=== PATIENT | male | born 1965 | race Caucasian/White ===

== ENCOUNTER 2019-04-05 10:34 | Inpatient (IN) | payer OTHER ==
[2019-04-05 11:56] VITALS: BMI 25.0
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
[2019-04-05] MEDS ORDERED: P-EPHED 60MG/TRIPROLIDI 2.5MG TABLET PO PRN (14:53)
[2019-04-05] MEDS ORDERED: MENTHOL/PHENOL 1 EACH UD MM PRN (14:53)
[2019-04-05] MEDS ORDERED: MAGNESIUM HYDROX 2400MG/30ML ORAL SUSPENSION 30 ML CUP PO PRN (14:53)
[2019-04-05] MEDS ORDERED: guaiFENesin 200 MG/10 ML 10 ML UNIT-DOSE CUPS PO PRN (14:53)
[2019-04-05] MEDS ORDERED: ACETAMINOPHEN 325 MG TABLET (FP) PO PRN (14:53)
[2019-04-05] MEDS ORDERED: IBUPROFEN 400 MG TABLET (FP) PO PRN (14:53)
[2019-04-05] MEDS ORDERED: MAG HYDROX/AL HYDROX/SIMETH 30 ML UNIT-DOSE CUP PO PRN (14:53)
[2019-04-05] MEDS ORDERED: MAGNESIUM CITRATE 300 ML BOTTLE PO PRN (14:53)
[2019-04-05] MEDS ORDERED: LOPERAMIDE HCL 2 MG CAPSULE PO PRN (14:53)
[2019-04-05] MEDS ORDERED: ALBUTEROL SO4 8 GM HFA INHALER IH PRN (14:55)
[2019-04-05] MEDS ORDERED: TUBERCULIN PPD 5 TU/0.1ML VIAL ID ONE (16:19)
[2019-04-05 17:09] LABS: HEMATOCRIT 42.2 % (35.4-49); HEMOGLOBIN 13.6 GM/dL (11.7-16.9); MCH 27.5 pg (25.7-33.7); MCHC 32.3 g/dl (32.0-35.9); MEAN CELL VOLUME 85.3 fl (80-96); MEAN PLT VOLUME 9.4 fl (7.5-11.1); PLATELET COUNT 216 K/MM3 (134-434); RBC 4.95 M/mm3 (4.00-5.60); WHITE BLOOD COUNT 7.6 K/mm3 (4.0-10.0)
--- NOTE | 2019-04-05 17:11 | PN ---
[facility] Progress Note Note: AT TIME OF ADMISSION, PATIENT REPROTED THAT HE CURRENTLY IS PRESCRIBED GENVOYA FOR TREATMENT OF HIV. HOWEVER, PATIENT REPORTS THAT HE RAN OUT OF MEDICATION AND THAT HE HAS NOT TAKEN IT FOR APPROX. THE LAST 2 WEEKS. GENVOYA NOT TO BE ORDERED FOR PATIENT DURING THIS DETOX ADMISSION. PATIENT ADVISED TO FOLLOW-UP WITH MEDICAL PROVIDER DR. Juliana BOLDEN WHEN POSSIBLE AFTER DISCHARGE FROM REHAB UNIT FOR FURTHER MEDICAL EVALUATION AND FOR SUBSEQUENT TREATMENT. PATIENT VERBALIZED UNDERSTANDING OF RECOMMENDATION. Juliana BUSCH NP
[2019-04-05 17:18] LABS: BILIRUBIN,TOTAL 0.2 mg/dL (0.2-1); CALCIUM 9.9 mg/dL (8.5-10.1); CREATININE 1.2 mg/dL (0.55-1.3); POTASSIUM 4.3 mmol/L (3.5-5.1)
[2019-04-05] MEDS: MELATONIN 5 MG TABLETS PO PRN (21:20)
[2019-04-05] MEDS: THIAMINE HCL 100 MG TABLET (FP) PO SCH (21:20)
[2019-04-06] MEDS: PRENATAL VITAMINS W/ FOLIC ACID TABLET (FP) PO SCH (10:08)
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
[2019-04-06 11:10] LABS: PH,URINE 6.5 (5.0-8.0); URINE APPEARANCE CLEAR; URINE BILIRUBIN NEGATIVE (NEGATIVE); URINE COLOR YELLOW; URINE GLUCOSE (UA) NEGATIVE (NEGATIVE); URINE KETONE NEGATIVE (NEGATIVE); URINE LEUK ESTERASE NEGATIVE (NEGATIVE); URINE NITRITE NEGATIVE (NEGATIVE); URINE PROTEIN NEGATIVE (NEGATIVE); URINE UROBILINOGEN 0.2 mg/dL (0.2-1.0)
[2019-04-06] MEDS: MIRTAZAPINE 15 MG TABLET (FP) PO SCH (21:17)
[2019-04-06] MEDS: THIAMINE HCL 100 MG TABLET (FP) PO SCH (21:17)
[2019-04-06] MEDS: OLANZapine 7.5 MG TABLET PO SCH (21:18)
[2019-04-07] MEDS: PRENATAL VITAMINS W/ FOLIC ACID TABLET (FP) PO SCH (09:58)
[2019-04-07] MEDS: THIAMINE HCL 100 MG TABLET (FP) PO SCH (21:22)
[2019-04-07] MEDS: OLANZapine 7.5 MG TABLET PO SCH (21:22)
[2019-04-07] MEDS: MIRTAZAPINE 15 MG TABLET (FP) PO SCH (21:22)
[2019-04-08] MEDS: PRENATAL VITAMINS W/ FOLIC ACID TABLET (FP) PO SCH (10:07)
[2019-04-08] MEDS: OLANZapine 7.5 MG TABLET PO SCH (21:27)
[2019-04-08] MEDS: MIRTAZAPINE 15 MG TABLET (FP) PO SCH (21:27)
[2019-04-08] MEDS: THIAMINE HCL 100 MG TABLET (FP) PO SCH (21:27)
[2019-04-09] MEDS: PRENATAL VITAMINS W/ FOLIC ACID TABLET (FP) PO SCH (10:21)
[2019-04-09] MEDS: OLANZapine 7.5 MG TABLET PO SCH (21:23)
[2019-04-09] MEDS: THIAMINE HCL 100 MG TABLET (FP) PO SCH (21:23)
[2019-04-09] MEDS: MIRTAZAPINE 15 MG TABLET (FP) PO SCH (21:23)
[2019-04-10] MEDS: PRENATAL VITAMINS W/ FOLIC ACID TABLET (FP) PO SCH (09:58)
[2019-04-10] MEDS: OLANZapine 7.5 MG TABLET PO SCH (21:34)
[2019-04-10] MEDS: MIRTAZAPINE 15 MG TABLET (FP) PO SCH (21:34)
[2019-04-10] MEDS: THIAMINE HCL 100 MG TABLET (FP) PO SCH (21:35)
[2019-04-11] MEDS: PRENATAL VITAMINS W/ FOLIC ACID TABLET (FP) PO SCH (09:47)
[2019-04-11] MEDS: MIRTAZAPINE 15 MG TABLET (FP) PO SCH (21:17)
[2019-04-11] MEDS: THIAMINE HCL 100 MG TABLET (FP) PO SCH (21:17)
[2019-04-11] MEDS: MELATONIN 5 MG TABLETS PO PRN (21:17)
[2019-04-11] MEDS: OLANZapine 7.5 MG TABLET PO SCH (21:17)
[2019-04-12] MEDS: PRENATAL VITAMINS W/ FOLIC ACID TABLET (FP) PO SCH (10:08)
[2019-04-12] MEDS: OLANZapine 7.5 MG TABLET PO SCH (21:14)
[2019-04-12] MEDS: THIAMINE HCL 100 MG TABLET (FP) PO SCH (21:14)
[2019-04-12] MEDS: MIRTAZAPINE 15 MG TABLET (FP) PO SCH (21:14)
[2019-04-13 06:49] VITALS: BP 115/85; PULSE 71; TEMP 98.1
[2019-04-13] MEDS: PRENATAL VITAMINS W/ FOLIC ACID TABLET (FP) PO SCH (10:17)
--- NOTE | 2019-04-13 11:24 | PN ---
S Progress Note (SOAP) Subjective: PT REQUESTED AN EARLY DISCHARGE TODAY. PT MET WITH HIS COUNSELOR, JOSUE KAUFMAN AND PT HAS BEEN REFERRED TO [facility] FOR CD AFTERCARE. PT REPORTS HE HAS A PCP DR. JOSE HERNADEZ/EDWARD CARIAS AT [facility]. PT REPORTS WILL SEE HIS PCP ON Friday04/19/19. ALERT O X 3. DENIES S/H/I. Objective: 04/13/19 11:23 Vital Signs - 24 hr 04/13/19 04/13/19 04/13/19 00:30 03:30 06:49 Temperature 98.1 F Pulse Rate 71 Respiratory 18 18 18 Rate Blood Pressure 115/85 Laboratory Tests 04/05/19 04/05/19 04/05/19 15:10 15:10 15:10 WBC 7.6 RBC 4.95 Hgb 13.6 Hct 42.2 MCV 85.3 MCH 27.5 MCHC 32.3 RDW 14.0 Plt Count 216 MPV 9.4 Sodium 142 Potassium 4.3 Chloride 107 Carbon Dioxide 29 Anion Gap 6 L BUN 14 Creatinine 1.2 Est GFR (CKD-EPI)AfAm 78.98 Est GFR (CKD-EPI)NonAf 68.14 Random Glucose 93 Calcium 9.9 Total Bilirubin 0.2 AST 31 ALT 19 Alkaline Phosphatase 77 Total Protein 8.0 Albumin 4.0 Urine Color Urine Appearance Urine pH Ur Specific [place] Urine Protein Urine Glucose (UA) Urine Ketones Urine Blood Urine Nitrite Urine Bilirubin Urine Urobilinogen Ur Leukocyte Esterase RPR Titer Nonreactive 04/06/19 07:00 WBC RBC Hgb Hct MCV MCH MCHC RDW Plt Count MPV Sodium Potassium Chloride Carbon Dioxide Anion Gap BUN Creatinine Est GFR (CKD-EPI)AfAm Est GFR (CKD-EPI)NonAf Random Glucose Calcium Total Bilirubin AST ALT Alkaline Phosphatase Total Protein Albumin Urine Color Yellow Urine Appearance Clear Urine pH 6.5 D Ur Specific [place] 1.018 Urine Protein Negative Urine Glucose (UA) Negative Urine Ketones Negative Urine Blood Negative Urine Nitrite Negative Urine Bilirubin Negative Urine Urobilinogen 0.2 Ur Leukocyte Esterase Negative RPR Titer Home Medications Medication Instructions Recorded Elviteg/Cob/Emtri/Tenof Alafen 1 each PO DAILY 04/05/19 [Genvoya (Non-Formulary)] Mirtazapine 15 mg PO HS 04/05/19 Olanzapine [Olanzapine Odt] 15 mg PO HS 04/05/19 NONCOMPLIANT WITH ANTIRETROVIRAL MEDS. PT WILL GO BACK TO FOLLOW UP WITH PCP FOR MANAGEMENT OF COMORBID CONDITION. Assessment: 04/13/19 11:23 NAD MEDICALLY STABLE Plan: FOLLOW UP WITH CD AFTERCARE RECOMMENDED. FOLLOW UP WITH PRIMARY CARE MANAGEMENT WITHIN 1 WEEK AFTER DISCHARGE.
== END 2019-04-13 11:55 | disposition home or self-care (01) | DRG 772 ==
LOC: YASAS 10:34 → Y5N 15:35
PROVIDERS: ADMIT Neuromusculoskeletal Medicine & OMM; ATTEND Neuromusculoskeletal Medicine & OMM
PROC: HZ42ZZZ Group Counseling for Substance Abuse Treatment, Cognitive-Behavioral (ICD-10-PCS; principal; 2019-04-05)
DX: F14.20 Cocaine dependence, uncomplicated (principal); F17.210 Nicotine dependence, cigarettes, uncomplicated; F19.24 Other psychoactive substance dependence with psychoactive substance-induced mood disorder; F19.282 Other psychoactive substance dependence with psychoactive substance-induced sleep disorder; F25.9 Schizoaffective disorder, unspecified; F32.9 Major depressive disorder, single episode, unspecified; Z21 Asymptomatic human immunodeficiency virus [HIV] infection status; J45.909 Unspecified asthma, uncomplicated; B18.2 Chronic viral hepatitis C
CPT/HCPCS: 36415; 80053; 81003; 85027; 86593